=== PATIENT | male | born 1945 | race Caucasian/White ===

== ENCOUNTER 2019-01-02 13:14 | Emergency (ER) | payer MEDICARE, BC ==
--- NOTE | 2019-01-02 15:03 | EDM.PDOC ---
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 He does claims he has mild burning sensation with urination and has been frequently urinating small amount of urine. Has been feeling cold and chills. No fever per patient. No nausea or vomiting. No back pain or flank pain. Pt take 20mg of hydrocortisone in the morning and 10mg in the evening. But today he took 30mg in the morning.Pt is here to have himself checked before his symptoms get worse, due to his Erasto's disease. No other complaint. Onset Date: 01/01/19 Duration: Getting Worse Severity: Mild Improves with: Denies: None Worsens with: Denies: None Associated Symptoms: Reports: Fever/Chills. Denies: Confusion, Chest Pain, Cough, Headaches, Loss of Appetite, Nausea/Vomiting, Rash, Seizure, Shortness of Breath, Syncope, Weakness - Related Data Allergies Allergy/AdvReac Type Severity Reaction Status Date / Time No Known Allergies Allergy Verified 01/02/19 14:20 Home Meds: Home Meds Atenolol [Tenormin] 50 mg PO DAILY 01/02/19 [History] Diphenoxylate HCl/Atropine [Lomotil] 1 tab PO DAILY PRN 01/02/19 [History] Fludrocortisone [Florinef] 0.05 mg PO DAILY 01/02/19 [History] Hydrocortisone 10 mg PO DAILY 01/02/19 [History] Hydrocortisone 20 mg PO ACBREAKFAST 01/02/19 [History] Levothyroxine Sodium [Levoxyl] 137 mcg PO DAILY 01/02/19 [History] Rosuvastatin [Crestor] 10 mg PO DAILY 01/02/19 [History] traZODone 100 mg PO DAILY 01/02/19 [History] ED ROS GENERAL - Review of Systems Review Of Systems: See Below Constitutional: Reports: Chills, Weakness. Denies: Fever HEENT: Denies: Ear Pain, Rhinitis, Throat Pain Respiratory: Denies: Cough, Sputum Cardiovascular: Denies: Chest Pain, Lightheadedness GI/Abdominal: Denies: Abdominal Pain, Constipation, Diarrhea, Nausea, Vomiting : Denies: Dysuria, Frequency Musculoskeletal: Denies: Joint Pain, Joint Swelling Skin: Denies: Bruising, Pruritis, Rash, Burn(s) Neurological: Denies: Dizziness, Headache, Numbness, Tingling, Weakness ED EXAM, GENERAL - Physical Exam Exam: See Below Exam Limited By: No Limitations General Appearance: Alert, WD/WN, No Apparent Distress Eye Exam: Bilateral Eye: EOMI, PERRL Ears: Normal External Exam, Normal Canal, Hearing Grossly Normal, Normal TMs Nose: Normal Inspection, Normal Mucosa, No Blood Throat/Mouth: Normal Inspection, Normal Lips, Normal Teeth, Normal Gums, Normal Oropharynx, Normal Voice, No Airway Compromise Head: Atraumatic, Normocephalic Neck: Normal Inspection, Supple, Non-Tender, Full Range of Motion Respiratory/Chest: No Respiratory Distress, Lungs Clear, Normal Breath Sounds, No Accessory Muscle Use, Chest Non-Tender Cardiovascular: Normal Peripheral Pulses, Regular Rate, Rhythm, No Edema, No Gallop, No JVD, No Murmur, No Rub GI/Abdominal: Normal Bowel Sounds Back Exam: Normal Inspection, Full Range of Motion, NT Course - Vital Signs Text/Narrative:: Pt's UA shows + leucs , also micro show 5 WBC. His White count is elevated at 12.2K with 78% neutros. His Creat is 1.01 and BUN is 16. His electrolytes are stable. It does appear like UTI with possible early Pyelonephritis. Considering that patient has Aiken's disease, and does appear like early pyelonephritis. I have advised him to increase his hydrocortisone to 30mg in the morning and 15mg in the evening to over come the stress of infection. Also I have started him on oral Levaquin 500mg daily for 10 days. Advised rest and to drink plenty of water. Symptoms should gradually improve. IF he starts to feels lethargic, weak, not able to eat or drink, should return to emergency room [facility]. - Orders/Labs/Meds Labs: Laboratory Tests 01/02/19 01/02/19 01/02/19 Range/Units 13:51 14:05 14:05 WBC 12.2 H (4.0-11.0) K/uL RBC 4.25 L (4.50-6.50) M/uL Hgb 12.8 L (13.0-18.0) g/dL Hct 38.0 L (40.0-54.0) % MCV 89 (76-96) fL MCH 30.1 (27.0-32.0) pg MCHC 33.7 (31.0-35.0) g/dL RDW 13.0 (11.0-16.0) % Plt Count 216 (150-400) K/uL MPV 9.5 (6.0-10.0) fL Neut % (Auto) 78.6 H (45.0-70.0) % Lymph % (Auto) 13.4 L (20.0-40.0) % [place] % (Auto) 7.2 (3.0-10.0) % Eos % (Auto) 0.7 L (1.0-5.0) % Baso % (Auto) 0.1 (0.0-0.5) % Neut # (Auto) 9.59 H (2.00-7.50) K/uL Lymph # (Auto) 1.64 (1.50-4.00) K/uL [place] # (Auto) 0.88 H (0.20-0.80) K/uL Eos # (Auto) 0.09 (0.04-0.40) K/uL Baso # (Auto) 0.01 L (0.02-0.10) K/uL Sodium 138 (136-145) mmol/L Potassium 4.1 (3.5-5.1) mmol/L Chloride 101 (98-107) mmol/L Carbon Dioxide 31.8 (21.0-32.0) mmol/L Anion Gap 9.3 (5.0-15.0) mmol/L BUN 16 (8-26) mg/dL Creatinine 1.01 (0.70-1.30) mg/dL Est Cr Clr Drug Dosing TNP Estimated GFR (MDRD) > 60 (>60) MLS/MIN BUN/Creatinine Ratio 15.8 (6-25) Glucose 133 H (74-100) mg/dL Calcium 8.5 (8.5-10.1) mg/dL Urine Color Yellow Urine Appearance Clear (CLEAR) Urine pH 6.5 (5.0-8.0) Ur Specific Severance 1.015 (1.003-1.030) Urine Protein Negative (NEGATIVE) mg/dL Urine Glucose (UA) Negative (NEGATIVE) mg/dL Urine Ketones Negative (NEGATIVE) mg/dL Urine Occult Blood Trace-intact H (NEGATIVE) Urine Nitrite Negative (NEGATIVE) Urine Bilirubin Negative (NEGATIVE) Urine Urobilinogen 0.2 (0.2-1.0) E.U./dL Ur Leukocyte Esterase Trace H (NEGATIVE) Urine RBC 0-5 H /HPF Urine WBC 0-5 H /HPF Ur Squamous Epith Cells Not seen /HPF Urine Bacteria Not seen /HPF Departure - Departure Time of Disposition: 15:30 Disposition: Home, Self-Care 01 Condition: Fair Clinical Impression: UTI (urinary tract infection) - Discharge Information *PRESCRIPTION DRUG MONITORING PROGRAM REVIEWED*: Not Applicable *COPY OF PRESCRIPTION DRUG MONITORING REPORT IN PATIENT ANTONINO: Not Applicable Instructions: Urinary Tract Infection, Adult, Levofloxacin tablets Referrals: PCP,None [Primary Care Provider] - Forms: ED Department Discharge Additional Instructions: Pt's UA shows + leucs , also micro show 5 WBC. His White count is elevated at 12.2K with 78% neutros. His Creat is 1.01 and BUN is 16. His electrolytes are stable. It does appear like UTI with possible early Pyelonephritis. Considering that patient has Aiken's disease, and does appear like early pyelonephritis. I have advised him to increase his hydrocortisone to 30mg in the morning and 15mg in the evening to over come the stress of infection. Also I have started him on oral Levaquin 500mg daily for 10 days. Advised rest and to drink plenty of water. Symptoms should gradually improve. IF he starts to feels lethargic, weak, not able to eat or drink, should return to emergency room [facility]. - Problem List & Annotations (1) UTI (urinary tract infection) SNOMED Code(s): 90132778 Code(s): N39.0 - URINARY TRACT INFECTION, SITE NOT SPECIFIED Status: Acute Current Visit: Yes - Problem List Review Problem List Initiated/Reviewed/Updated: Yes - Assessment/Plan Assessment:: UTI Plan: Pt's UA shows + leucs , also micro show 5 WBC. His White count is elevated at 12.2K with 78% neutros. His Creat is 1.01 and BUN is 16. His electrolytes are stable. It does appear like UTI with possible early Pyelonephritis. 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 I have advised him to increase his hydrocortisone to 30mg in the morning and 15mg in the evening to over come the stress of infection. Also I have started him on oral Levaquin 500mg daily for 10 days. Advised rest and to drink plenty of water. Symptoms should gradually improve. IF he starts to feels lethargic, weak, not able to eat or drink, should return to emergency room [facility]U.
[2019-01-02] MEDS ORDERED: Acetaminophen 325 MG Tab ONE (15:40)
[2019-01-02] MEDS ORDERED: Ondansetron 4 MG/2 ML SDV ONE (22:11)
[2019-01-02] MEDS ORDERED: methylPREDNISolone Sodium Succinate 125 MG/2 ML SDV ONE (22:11)
[2019-01-03] MEDS ORDERED: Acetaminophen 325 MG Tab PO ONE (00:08)
== END 2019-01-02 15:55 | disposition home or self-care (01) ==
LOC: LB.ED 13:14
DX: N39.0 Urinary tract infection, site not specified (principal); Z79.899 Other long term (current) drug therapy
CPT/HCPCS: 36415; 80048; 81001; 85025; 99283; A9270

== ENCOUNTER 2019-01-02 22:10 | Inpatient (IN) | payer MEDICARE, BC ==
[2019-01-02] MEDS ORDERED: Levofloxacin/Dextrose 5%-Water 100 ML IV ONE (22:21)
[2019-01-02] MEDS: Sodium Chloride 0.9% 1,000 ML IV SCH (22:29)
[2019-01-02] MEDS: Levofloxacin/Dextrose 5%-Water 500 MG in Premix Bag 1 BAG IV SCH (22:31)
[2019-01-02] MEDS ORDERED: Acetaminophen 325 MG Tab PO PRN (22:40)
[2019-01-02] MEDS ORDERED: Ondansetron 4 MG/2 ML SDV IV PRN (22:40)
[2019-01-02] MEDS ORDERED: methylPREDNISolone Sodium Succinate 125 MG/2 ML SDV IVPUSH ONE (22:47)
--- NOTE | 2019-01-02 23:01 | PCM.SN ---
- Free Text/Narrative Note: Pt was seen in the emergency room today afternoon with UTI. Pt was discharged on Oral Levaquin 500mg daily. 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 Hence his spouse called ambulance. Pt is wretching here in the hospital. He has been admitted for Iv hydration and IV levaquin. Also he has Solomon's disease, hence he did receive solumdrol 125mg Iv to stress. Will admit him to inpatient and monitor, considering his medical history. kindly see the H&P form Emergency room today afternoon and scan it into chart.
[2019-01-02] MEDS ORDERED: Atropine/Diphenoxylate 0.025-2.5 MG/5 ML Soln 60 ML Bottle PO PRN (23:15)
[2019-01-03] MEDS: Sodium Chloride 0.9% 1,000 ML IV SCH (05:52)
[2019-01-03] MEDS: Levothyroxine 25 MCG Tab PO SCH ×2 (06:06→08:34)
[2019-01-03] MEDS: Levothyroxine 112 MCG Tab PO SCH ×2 (06:06→08:33)
[2019-01-03] MEDS ORDERED: Hydrocortisone 10 MG Tab PO SCH (07:00)
[2019-01-03] MEDS ORDERED: traZODone 100 MG Tab PO SCH ×2 (08:00→21:00)
--- NOTE | 2019-01-03 08:25 | PCM.PN ---
- General Info Date of Service: 01/03/19 Subjective Update: Pt claims he feels better today. He has not had any more fever. also his urinary frequency has decreased and has no more dysuria. Has not had any more episodes of vomiting since midnight. Tolerating oral fluids. Functional Status: Reports: Tolerating Diet, Ambulating, Urinating - Review of Systems General: Reports: Malaise. Denies: Fever, Weakness HEENT: Denies: Headaches, Sinus Congestion, Sore Throat Pulmonary: Denies: Shortness of Breath, Cough, Sputum Cardiovascular: Denies: Chest Pain, Lightheadedness Gastrointestinal: Reports: Abdominal Pain (suprapubic discomfort), Flatus. Denies: Constipation, Diarrhea, Nausea, Vomiting Genitourinary: Reports: Frequency (improved). Denies: Dysuria Musculoskeletal: Denies: Joint Pain, Joint Swelling Skin: Denies: Bruising, Pruritis, Rash - Patient Data Vitals - Most Recent: Last Vital Signs Temp 97.6 F 01/03/19 05:27 Pulse 64 01/03/19 05:27 Resp 15 01/03/19 05:27 BP 130/66 01/03/19 05:27 Pulse Ox 94 L 01/03/19 05:27 Weight - Most Recent: 88.451 kg I&O - Last 24 Hours: Intake & Output 01/02/19 01/03/19 01/03/19 22:59 06:59 14:59 Intake Total 2020 Output Total 810 Balance 1210 Lab Results Last 24 Hours: Laboratory Results - last 24 hr 01/03/19 Range/Units 07:45 WBC 13.7 H (4.0-11.0) K/uL RBC 4.35 L (4.50-6.50) M/uL Hgb 13.0 (13.0-18.0) g/dL Hct 38.7 L (40.0-54.0) % MCV 89 (76-96) fL MCH 29.9 (27.0-32.0) pg MCHC 33.6 (31.0-35.0) g/dL RDW 12.9 (11.0-16.0) % Plt Count 224 (150-400) K/uL MPV 9.6 (6.0-10.0) fL Neut % (Auto) 93.2 H (45.0-70.0) % Lymph % (Auto) 5.2 L (20.0-40.0) % [place] % (Auto) 1.5 L (3.0-10.0) % Eos % (Auto) 0.0 L (1.0-5.0) % Baso % (Auto) 0.1 (0.0-0.5) % Neut # (Auto) 12.77 H (2.00-7.50) K/uL Lymph # (Auto) 0.71 L (1.50-4.00) K/uL [place] # (Auto) 0.20 (0.20-0.80) K/uL Eos # (Auto) 0.00 L (0.04-0.40) K/uL Baso # (Auto) 0.01 L (0.02-0.10) K/uL Med Orders - Current: Current Medications Acetaminophen (Tylenol) 650 mg PO Q4H PRN PRN Reason: Pain (Mild 1-3)/fever Atenolol (Tenormin) 50 mg PO DAILY [facility] Diphenoxylate HCl/Atropine (Lomotil) 5 ml PO DAILY PRN PRN Reason: Diarrhea Fludrocortisone Acetate (Florinef) 0.05 mg PO DAILY [facility] Hydrocortisone (Cortef) 15 mg PO DAILY [facility] Hydrocortisone (Cortef) 30 mg PO 0800 [facility] Sodium Chloride (Normal Saline) 1,000 mls @ 150 mls/hr IV ASDIRECTED [facility] Last Admin: 01/03/19 05:52 Dose: 150 mls/hr Levofloxacin/Dextrose 500 mg/ (Premix) 100 mls @ 100 mls/hr IV Q24H [facility] Last Admin: 01/02/19 22:31 Dose: 100 mls/hr Levothyroxine Sodium (Levothyroxine) 112 mcg PO DAILY [facility] Last Admin: 01/03/19 06:06 Dose: 112 mcg Levothyroxine Sodium (Levothyroxine) 25 mcg PO DAILY [facility] Last Admin: 01/03/19 06:06 Dose: 25 mcg Ondansetron HCl (Zofran) 4 mg IV Q6H PRN PRN Reason: Nausea/Vomiting Last Admin: 01/02/19 22:23 Dose: 4 mg Rosuvastatin Calcium (Crestor) 10 mg PO DAILY [facility] Trazodone HCl (Trazodone) 100 mg PO 2100 [facility] Discontinued Medications Hydrocortisone (Cortef) 30 mg PO WITHBREAKFAST [facility] Levofloxacin/Dextrose (Levaquin In D5w 500 Mg/100 Ml) Confirm Administered Dose 100 mls @ as directed IV .STK-MED ONE Stop: 01/02/19 22:22 Last Admin: 01/03/19 00:38 Dose: Not Given Methylprednisolone Sodium Succinate (Solu-Medrol) 125 mg IVPUSH ONETIME ONE Stop: 01/02/19 22:48 Last Admin: 01/02/19 22:25 Dose: 125 mg Trazodone HCl (Trazodone) 100 mg PO DAILY [facility] - Exam General: Alert, Oriented HEENT: Pupils Equal, Pupils Reactive, EOMI, Mucous Membr. Moist/[place] Neck: Supple Lungs: Clear to Auscultation, Normal Respiratory Effort Cardiovascular: Regular Rate, Regular Rhythm GI/Abdominal Exam: Normal Bowel Sounds, Soft, No Organomegaly, No Distention, No Abnormal Bruit, No Mass, Pelvis Stable, Tender (Vague suprapubic discomfort) . No: Guarding, Rigid, Rebound Back Exam: Normal Inspection, Full Range of Motion Extremities: Normal Inspection, Normal Range of Motion, Non-Tender, No Pedal Edema, Normal Capillary Refill Skin: Warm - Problem List & Annotations (1) UTI (urinary tract infection) SNOMED Code(s): 97844910 Code(s): N39.0 - URINARY TRACT INFECTION, SITE NOT SPECIFIED Status: Acute Current Visit: No - Problem List Review Problem List Initiated/Reviewed/Updated: Yes - My Orders Last 24 Hours: My Active Orders 01/02/19 22:30 Levofloxacin/Dextrose 5%-Water [Levaquin in D5W 500 MG/100 ML] 500 mg Premix Bag 1 bag IV Q24H 01/02/19 22:40 Patient Status [ADT] Routine Bedrest Bathroom Privileges [RC] ASDIRECTED Height and Weight [RC] .MON Oxygen Therapy [RC] PRN VTE/DVT Education [RC] 1000 Vital Signs [RC] 02,06,10,14,18,22 Acetaminophen [Tylenol] 650 mg PO Q4H PRN Ondansetron [Zofran] 4 mg IV Q6H PRN Resuscitation Status Routine 01/02/19 22:42 Intake and Output [RC] 06,18 01/02/19 22:45 Sodium Chloride 0.9% [Normal Saline] 1,000 ml IV ASDIRECTED 01/02/19 23:15 Atropine/Diphenoxylate [Lomotil] 5 ml PO DAILY PRN 01/03/19 02:01 CULTURE MRSA SURVEY [RM] Routine 01/03/19 08:00 Atenolol [Tenormin] 50 mg PO DAILY Fludrocortisone [Florinef] 0.05 mg PO DAILY Hydrocortisone [Cortef] 30 mg PO 0800 Levothyroxine 112 mcg PO DAILY Levothyroxine 25 mcg PO DAILY Rosuvastatin [Crestor] 10 mg PO DAILY 01/03/19 14:00 Hydrocortisone [Cortef] 15 mg PO DAILY 01/03/19 21:00 traZODone 100 mg PO 2100 - Assessment Assessment:: UTI with early pyelonephritis- improving - Plan Plan:: Pt claims he feels better today. Has not had any more fever. His temp now is 98.6F. Also he has had no more episodes of vomiting since midnight. Tolerating fluids well. On Iv Levaquin and Iv normal saline. Dysuria and frequency improving. Still feels tired. His White count is 13K, which might be related to IV solumedrol last night. Plan is to continue Iv normal saline through the day. Will have him on regular diet as tolerated. Will have second dose of IV levaquin . If tolerating oral fluids well, will plan on discontinuing IV fluids in the evening.
[2019-01-03] MEDS: Atenolol 50 MG Tab PO SCH (08:31)
[2019-01-03] MEDS: Fludrocortisone 0.1 MG Tab PO SCH (08:32)
[2019-01-03] MEDS: Hydrocortisone 10 MG Tab PO SCH ×2 (08:33→14:00)
[2019-01-03] MEDS: Rosuvastatin 20 MG Tab PO SCH (08:34)
[2019-01-03] MEDS ORDERED: Levofloxacin/Dextrose 5%-Water 100 ML IV ONE (21:00)
[2019-01-03] MEDS: Levofloxacin/Dextrose 5%-Water 500 MG in Premix Bag 1 BAG IV SCH (21:15)
[2019-01-04] MEDS: Levothyroxine 112 MCG Tab PO SCH ×2 (06:30→07:01)
[2019-01-04] MEDS: Levothyroxine 25 MCG Tab PO SCH ×2 (06:30→07:01)
[2019-01-04] MEDS: Hydrocortisone 10 MG Tab PO SCH ×2 (08:14→08:17)
[2019-01-04] MEDS: Rosuvastatin 20 MG Tab PO SCH (08:17)
[2019-01-04] MEDS: Atenolol 50 MG Tab PO SCH (08:19)
[2019-01-04] MEDS: Fludrocortisone 0.1 MG Tab PO SCH (08:27)
--- NOTE | 2019-01-04 11:04 | PCM.DCSUM1 ---
Discharge Summary - Hospital Course Free Text/Narrative:: Pt is a 73 year old male, with h/o Essex's disease and was seen in the emergency room on 01/02/19 and was started on Levaquin orally. He has been having fever of 102F and also has been vomiting, and hence was brought back to hospital. Pt probably had early pyelonephritis of Essex's crinis form the infection. Pt was admitted for Iv antibiotics and also for IV hydration and controlling his nausea. Pt did receive solumedrol 125mg IV and Zofran. His BMP was stable with normal electrolytes. Hence he was placed on normal saline at 150cc/hr for IV hydration and also received Levaquin 500mg IV. On day1: Pt claims that he has been feeling better. Has not had any more nausea , feels stronger. Still has some dysuria but urinary frequency has decreased. Pt was encourage oral fluid and diet. As he was tolerating oral diet well. His IV fluids were discontinued . encourage to ambulate. Day2: Pt has been feeling better. Has been afebrile , tolerating oral diet well. His urinary frequency and dysuria has resolved. Pt reassured, that his UTI is under control As he is feeling better and running any more fever, planned for discharge. Advised to continue levaquin 500mg daily for another 7 days. Also advised to keep his hydrocortisone at 30mg in the morning and 15mg in the afternoon until done with antibiotics. After done with levaquin, he could decrease hydrocortisone to 20mg in the morning and 10 mg at noon. Advised plenty of fluids and rest. followup with his primary care provider next week for recheck. Brief History: presented with dyuria, with fever. Kindly see the ER notes for details. Diagnosis: Stroke: No - Discharge Data Discharge Date: 01/04/19 Discharge Disposition: Home, Self-Care 01 Condition: Good - Discharge Diagnosis/Problem(s) (1) UTI (urinary tract infection) SNOMED Code(s): 41678269 ICD Code: N39.0 - URINARY TRACT INFECTION, SITE NOT SPECIFIED Status: Acute Current Visit: No - Patient Instructions Diet: Regular Diet as Tolerated Fluid Restriction: 2000 mL Activity: As Tolerated Driving: May Drive Today Showering/Bathing: May Shower - Discharge Plan *PRESCRIPTION DRUG MONITORING PROGRAM REVIEWED*: Not Applicable *COPY OF PRESCRIPTION DRUG MONITORING REPORT IN PATIENT ANTONINO: Not Applicable Home Medications: Home Meds Atenolol [Tenormin] 50 mg PO DAILY 01/02/19 [History] Diphenoxylate HCl/Atropine [Lomotil] 1 tab PO DAILY PRN 01/02/19 [History] Fludrocortisone [Florinef] 0.05 mg PO DAILY 01/02/19 [History] Hydrocortisone 10 mg PO DAILY 01/02/19 [History] Hydrocortisone 20 mg PO ACBREAKFAST 01/02/19 [History] Levothyroxine Sodium [Levoxyl] 137 mcg PO DAILY 01/02/19 [History] Rosuvastatin [Crestor] 10 mg PO DAILY 01/02/19 [History] traZODone 100 mg PO DAILY 01/02/19 [History] Hydrocortisone [Cortef] 15 mg PO DAILY tablet 01/04/19 [Rx] Hydrocortisone [Cortef] 30 mg PO 0800 tablet 01/04/19 [Rx] - Discharge Summary/Plan Comment DC Time >30 min.: Yes Discharge Summary/Plan Comment: Advised to continue levaquin 500mg daily for another 7 days. Also advised to keep his hydrocortisone at 30mg in the morning and 15mg in the afternoon until done with antibiotics. After done with levaquin, he could decrease hydrocortisone to 20mg in the morning and 10 mg at noon. Advised plenty of fluids and rest. followup with his primary care provider next week for recheck. - General Info Date of Service: 01/04/19 Functional Status: Reports: Tolerating Diet, Ambulating, Urinating - Review of Systems General: Denies: Fever, Weakness, Fatigue, Malaise HEENT: Denies: Headaches, Sore Throat Pulmonary: Denies: Cough, Sputum Cardiovascular: Denies: Chest Pain, Palpitations, Lightheadedness Gastrointestinal: Denies: Abdominal Pain, Nausea, Vomiting Genitourinary: Denies: Dysuria, Frequency, Burning, Urgency Musculoskeletal: Denies: Joint Pain, Joint Swelling Skin: Denies: Bruising, Pruritis, Rash Neurological: Denies: Confusion, Dizziness, Headache - Patient Data Vitals - Most Recent: Last Vital Signs Temp 98 F 01/04/19 09:32 Pulse 52 L 01/04/19 09:32 Resp 11 L 01/04/19 09:32 BP 146/72 H 01/04/19 09:32 Pulse Ox 99 01/04/19 09:32 Weight - Most Recent: 88.451 kg I&O - Last 24 hours: Intake & Output 01/03/19 01/04/19 01/04/19 22:59 06:59 14:59 Intake Total 700 Balance 700 [place] Results - Last 24 hrs: Microbiology 01/03/19 02:01 MRSA Surveillance Culture - Final Nasal, Unspecified NO MRSA ISOLATED Med Orders - Current: Current Medications Acetaminophen (Tylenol) 650 mg PO Q4H PRN PRN Reason: Pain (Mild 1-3)/fever Last Admin: 01/03/19 21:13 Dose: 650 mg Atenolol (Tenormin) 50 mg PO DAILY [facility] Last Admin: 01/04/19 08:19 Dose: 50 mg Diphenoxylate HCl/Atropine (Lomotil) 5 ml PO DAILY PRN PRN Reason: Diarrhea Fludrocortisone Acetate (Florinef) 0.05 mg PO DAILY [facility] Last Admin: 01/04/19 08:27 Dose: 0.05 mg Hydrocortisone (Cortef) 15 mg PO DAILY [facility] Last Admin: 01/04/19 08:14 Dose: Not Given Hydrocortisone (Cortef) 30 mg PO 0800 [facility] Last Admin: 01/04/19 08:17 Dose: 30 mg Sodium Chloride (Normal Saline) 1,000 mls @ 150 mls/hr IV ASDIRECTED [facility] Last Admin: 01/03/19 05:52 Dose: 150 mls/hr Levofloxacin/Dextrose 500 mg/ (Premix) 100 mls @ 100 mls/hr IV Q24H [facility] Last Admin: 01/03/19 21:15 Dose: 100 mls/hr Levothyroxine Sodium (Levothyroxine) 112 mcg PO DAILY [facility] Last Admin: 01/04/19 07:01 Dose: Not Given Levothyroxine Sodium (Levothyroxine) 25 mcg PO DAILY [facility] Last Admin: 01/04/19 07:01 Dose: Not Given Ondansetron HCl (Zofran) 4 mg IV Q6H PRN PRN Reason: Nausea/Vomiting Last Admin: 01/02/19 22:23 Dose: 4 mg Rosuvastatin Calcium (Crestor) 10 mg PO DAILY [facility] Last Admin: 01/04/19 08:17 Dose: 10 mg Trazodone HCl (Trazodone) 100 mg PO 2100 [facility] Last Admin: 01/03/19 21:13 Dose: 100 mg Discontinued Medications Hydrocortisone (Cortef) 30 mg PO WITHBREAKFAST [facility] Levofloxacin/Dextrose (Levaquin In D5w 500 Mg/100 Ml) Confirm Administered Dose 100 mls @ as directed IV .STK-MED ONE Stop: 01/02/19 22:22 Last Admin: 01/03/19 00:38 Dose: Not Given Levofloxacin/Dextrose (Levaquin In D5w 500 Mg/100 Ml) Confirm Administered Dose 100 mls @ as directed IV .STK-MED ONE Stop: 01/03/19 21:01 Last Admin: 01/03/19 21:13 Dose: Not Given Methylprednisolone Sodium Succinate (Solu-Medrol) 125 mg IVPUSH ONETIME ONE Stop: 01/02/19 22:48 Last Admin: 01/02/19 22:25 Dose: 125 mg Trazodone HCl (Trazodone) 100 mg PO DAILY [facility] - Exam General: Reports: Alert, Oriented HEENT: Reports: Pupils Equal, Pupils Reactive, EOMI, Mucous Membr. Moist/[place] Neck: Reports: Supple Lungs: Reports: Clear to Auscultation, Normal Respiratory Effort Cardiovascular: Reports: Regular Rate, Regular Rhythm GI/Abdominal Exam: Normal Bowel Sounds, Soft, Non-Tender, No Organomegaly, No Distention, No Abnormal Bruit, No Mass, Pelvis Stable Extremities: Normal Inspection, Normal Range of Motion, Non-Tender, No Pedal Edema, Normal Capillary Refill Skin: Reports: Warm, Intact
== END 2019-01-04 10:00 | disposition home or self-care (01) | DRG 690 ==
LOC: LB.MS 22:10 → UNDOADMIN 22:10 → LB.MS 22:40
PROVIDERS: ADMIT Family Medicine; ATTEND Family Medicine
DX: N12 Tubulo-interstitial nephritis, not specified as acute or chronic (principal); E27.2 Addisonian crisis; Z79.899 Other long term (current) drug therapy
CPT/HCPCS: 36415; 85025; A0425; A0429; A9270-GY; J1956; J2405; J2930; J7030